=== PATIENT | female | born 1975 | race Caucasian/White ===

== ENCOUNTER 2018-12-03 11:21 | Emergency (ER) | payer MEDICAID ==
[~2018-12-03] VITALS: Ht 172.7 cm; Wt 63.6 kg
[2018-12-03 11:26] VITALS: BP 149/94
[2018-12-03] MEDS ORDERED: ketorolac tromethamine 15mg/ml inj. IM ONE (12:35)
== END 2018-12-03 13:03 | disposition home or self-care (01) ==
LOC: ER 11:22
DX: S89.82XA Other specified injuries of left lower leg, initial encounter (principal); Z88.2 Allergy status to sulfonamides; Z98.890 Other specified postprocedural states; W17.89XA Other fall from one level to another, initial encounter; Y93.89 Activity, other specified; Y92.89 Other specified places as the place of occurrence of the external cause; Y99.8 Other external cause status
CPT/HCPCS: 73564; 96372; 99284; J1885